=== PATIENT | male | born 1955 | race African-American/Black ===

== ENCOUNTER 2022-06-20 18:20 | Emergency (ER) | payer BC ==
[2022-06-20] MEDS ORDERED: Aspirin 81 MG Tab.Chew PO ONE (19:10)
[2022-06-20 19:18] LABS: ESTIMATED GFR 98 mL/min (>60)
== END 2022-06-20 21:49 | disposition home or self-care (01) ==
LOC: JD.ED 18:20
DX: R07.89 Other chest pain (principal)
CPT/HCPCS: 36415; 71045; 80053; 83690; 83735; 84484; 85025; 93005; 99285; A9270